=== PATIENT | male | born 1970 | race Caucasian/White ===

== ENCOUNTER 2018-08-17 22:19 | Inpatient (IN) ==
[2018-08-17] MEDS ORDERED: *HR* FentaNYL (PF) 100 MCG/2 ML VIAL IVP ONE (22:47)
[2018-08-17] MEDS ORDERED: 0.9 % Sodium Chloride 1,000 ML IVC STA (22:47)
[2018-08-17] MEDS ORDERED: Aspirin 81 MG TAB.CHEW PO STA (22:47)
[2018-08-17] MEDS ORDERED: Isovue-370 500 ML BOTTLE IVP ONE (22:50)
--- NOTE | 2018-08-17 22:58 | Emergency Department Note ---
Disposition Clinical Impression: Multifocal pneumonia, Hypoxia, Hypokalemia Disposition: Admitted As Inpatient Condition: Good Time of Disposition: 02:00 General Adult HPI - General Chief complaint: ED Abdominal Pain Stated complaint: N/V Time Seen by Provider: 08/17/18 22:37 Source: patient Limitations: no limitations Nursing Notes Reviewed: Yes Vital Signs Reviewed: Yes - History of Present Illness HPI Narrative: 48-year-old male with history of bladder cancer who presents emergency Department with complaints of chest and abdominal pain for the last 5 days. Patient states he has been unable to keep anything in terms of food or fluid down in that time. He states he has had pain in his chest like this before which he attributed to anxiety. He states that one plan he had streaks of blood after a long bout of vomiting but otherwise no hematemesis, melena. He has had no diarrhea. He states he feels short of breath and has chronic back pain but this is unchanged. He notes that he follows with a urologist and had a cancerous tumor removed but is not currently undergoing any other treatment for his bladder cancer. He denies any fever, weight loss, headache, visual changes, numbness, tingling or weakness. Pain Scale: 10 - Related Data Allergies Allergy/AdvReac Type Severity Reaction Status Date / Time No Known Allergies Allergy Verified 08/17/18 22:34 Review of Systems: ROS per history of present illness, all other systems reviewed and negative or normal. All systems ED: reviewed and negative except as stated. Review of Systems: As Per HPI Past Medical History - Past Medical History Medical history: Reports: other - Social History Smoking Status: Never smoker Alcohol use: Reports: none Drug use: Reports: marijuana Physical Exam General: Conversant. Appears uncomfortable. Follow commands. Appears stated age. Neck: No JVD. Trachea midline. Neck supple. Eyes: PERRL. No scleral icterus. HENT: Normocephalic and atraumatic. Moist mucus membranes. Cardiovascular: Regular rate and rhythm. Normal S1 and S2. No murmurs appreciated. Normal capillary refill. Extremities well perfused with 2+ distal pulses bilaterally. No edema. Pulmonary: Decreased breath sounds bilaterally, anteriorly and posteriorly. No wheezes, rales, or rhonchi. Not in respiratory distress. Speaks in full sentences but is now requiring 2 L nasal cannula. Abdomen: Soft, nondistended. Diffuse mild tenderness, worse in the epigastric area. Neuro: Alert and oriented x3. No slurred speech. No focal deficits noted. Skin: No rashes noted on visualized skin. Musculoskeletal: No bony abnormalities visualized. Moves all extremities. Psych: Normal mood. Pleasant. Makes appropriate eye contact. - General Limitations: no limitations General appearance: alert, in no apparent distress Course Vital Signs Temperature 99.4 F 08/17/18 22:31 Pulse Rate 107 08/17/18 22:31 Respiratory Rate 20 08/17/18 22:31 Blood Pressure 155/78 08/17/18 22:31 O2 Sat by Pulse Oximetry 86 08/17/18 22:31 Temperature 99.4 F 08/17/18 22:31 Pulse Rate 83 08/18/18 01:31 Respiratory Rate 20 08/18/18 01:31 Blood Pressure 127/73 08/18/18 01:31 O2 Sat by Pulse Oximetry 92 08/18/18 01:31 Oxygen Delivery Oxygen Delivery Nasal Cannula Medical Decision Making - MDM Narrative Medical decision making narrative: 48-year-old male with history of bladder cancer who presents emergency Department with complaints of chest pain, shortness of breath and nausea and vomiting over the last 5 days. On arrival the patient was hypoxic in the 80s on room air. He does not have a history of oxygen dependence. He is also tachyc ardic but not febrile. The patient had only mild abdominal tenderness without rigidity or guarding. Given the patient's symptoms did obtain CBC, BMP, blood cultures, urinalysis, CT abdomen pelvis as well as CT anterior chest to evaluate for pulmonary embolism. Chest x-ray did show multifocal pneumonia. CT anterior chest showed no evidence of pulmonary embolism but did show multifocal pneumonia with reactive lymphadenopathy. CT abdomen and pelvis showed no acute intra- abdominal process to cause his pain The patient was initiated on IV antibiotics for treatment of community-acquired pneumonia with azithromycin and Rocephin. He does have significant leukocytosis and hypokalemia which was treated with 40mEq IV potassium given he has been intermittently nauseated. Patient was given 2 L fluid bolus and has been requiring 2 L nasal cannula to maintain adequate saturation. Given his new hypoxia and several days of symptoms do believe he warrants admission. Discussed case with on-call hospitalist Dr. Singh who agrees with plan for admission and accepts the patient to the inpatient service. Patient agrees with and understands course of treatment plan including plan for admission. All questions answered. - Medical Records Medical records reviewed: Yes I reviewed the patient's medical records. - Lab Data Lab results reviewed: Yes I reviewed the patient's lab results. Result diagrams: 08/17/18 22:52 08/17/18 22:52 Lab Results 08/17/18 08/17/18 08/17/18 Range/Units 22:52 22:52 22:52 WBC 23.9 H (4.3-11.1) K/mcL RBC 5.52 H (4.19-5.50) M/mcL Hgb 15.2 (12.9-16.9) g/dL Hct 43.1 (37.5-50.1) % MCV 78.1 L (83.0-100.0) fL MCH 27.5 L (28.0-33.3) pg MCHC 35.3 (31.6-35.5) g/dL RDW 12.1 (11.5-14.5) % Plt Count 417 H (140-400) K/mcL MPV 9.9 (9.4-12.4) fL Immature Gran % 0.7 (0-4) % Seg Neutrophils % 93.3 % Lymphocytes % 4.0 % Monocytes % 1.8 % Eosinophils % 0.1 % Basophils % 0.1 % Neutrophils # 22.3 H (1.6-8.9) K/mcL Lymphocytes # 1.0 (0.6-4.6) K/mcL Monocytes # 0.4 (0.0-1.3) K/mcL Eosinophils # 0.0 (0.0-0.6) K/mcL Basophils # 0.0 (0.0-0.2) K/mcL Platelet Estimate Normal (Normal) Sodium 134 L (136-145) mEq/L Potassium 2.8 L (3.5-5.1) mEq/L Chloride 89 L (98-107) mEq/L Carbon Dioxide 26 (23-29) mEq/L BUN 12 (6-20) mg/dL Creatinine 0.78 (0.70-1.30) mg/dL Est GFR ( Amer) > 60 (> 60) Est GFR (Non-Af Amer) > 60 (> 60) BUN/Creatinine Ratio 15 (6-26) Glucose 119 H (70-105) mg/dL Calculated Osmolality 279 L (280-300) Lactic Acid 1.4 (0.5-2.2) mmol/L Calcium 9.6 (8.6-10.3) mg/dL Total Bilirubin 0.9 (0.3-1.0) mg/dL Direct Bilirubin 0.4 H (0.0-0.2) mg/dL Indirect Bilirubin 0.5 (0.0-1.2) mg/dL AST 26 (13-39) Units/L ALT 8 (7-52) Units/L Alkaline Phosphatase 66 (34-104) Units/L Troponin I 0.03 (< 0.04) ng/mL Serum Total Protein 7.9 (6.4-8.9) g/dL Albumin 4.0 (3.5-5.7) g/dL Globulin 3.9 H (2.4-3.5) g/dL Albumin/Globulin Ratio 1.0 L (1.1-2.2) Lipase 4 L (11-82) Units/L TSH 1.033 (0.340-5.600) mcIU/mL - Radiology Data Radiology results reviewed: Yes I reviewed the patient's radiology results. Chest X-Ray 08/17/18 22:46 IMPRESSION: Multifocal pneumonia particularly at the right lung base. This may represent an atypical, mycoplasma or viral pneumonia. D/ / David Barrett MD / David Barrett MD Interpreting Provider: David Barrett MD Abdomen/Pelvis CT 08/18/18 22:50 IMPRESSION: No evidence of acute intra-abdominopelvic inflammatory process or fluid collection. D/ / Jolene Tsang Cha, MD / Jolene Tsang Cha, MD Interpreting Provider: Jolene Tsang Cha, MD Chest CTA 08/18/18 22:50 IMPRESSION: No evidence of pulmonary embolism. Multifocal bilateral airspace disease with ground-glass opacity. Findings likely represent pneumonia. Pulmonary hemorrhage or edema are also possible. Mild mediastinal adenopathy is likely reactive. D/ / Jolene Tsang Cha, MD / Jolene Tsang Cha, MD Interpreting Provider: Jolene Tsang Cha, MD - EKG Data EKG #1 EKG attestation: Yes I reviewed and interpreted this EKG. EKG results narrative: Normal sinus rhythm rate of 97. Normal axis. There are no ischemic ST or T wave abnormalities. No change when compared with prior from 09/12/10
[2018-08-17 23:07] LABS: Basophils % 0.1 %; Eosinophils % 0.1 %; Hematocrit 43.1 % (37.5-50.1); Hemoglobin 15.2 g/dL (12.9-16.9); Immature Granulocytes % 0.7 % (0-4); Mean Corpuscular HGB Conc 35.3 g/dL (31.6-35.5); Mean Corpuscular Hemoglobin 27.5 pg (28.0-33.3); Mean Corpuscular Volume 78.1 fL (83.0-100.0); Mean Platelet Volume 9.9 fL (9.4-12.4); Monocytes # 0.4 K/mcL (0.0-1.3); Monocytes % 1.8 %; Neutrophils # 22.3 K/mcL (1.6-8.9); Platelet Count 417 K/mcL (140-400); Red Blood Count 5.52 M/mcL (4.19-5.50); Red Cell Distribution Width 12.1 % (11.5-14.5); Segmented Neutrophils % 93.3 %; White Blood Count 23.9 K/mcL (4.3-11.1)
[2018-08-17] MEDS: Ondansetron 4 MG/2 ML VIAL IVP STA (23:18)
[2018-08-17 23:25] LABS: Platelet Estimate Normal (Normal)
[2018-08-17 23:45] LABS: Alanine Aminotransferase 8 Units/L (7-52); Alkaline Phosphatase 66 Units/L (34-104); Aspartate Amino Transferase 26 Units/L (13-39); BUN/Creatinine Ratio 15 (6-26); Bilirubin,Direct 0.4 mg/dL (0.0-0.2); Bilirubin,Indirect 0.5 mg/dL (0.0-1.2); Bilirubin,Total 0.9 mg/dL (0.3-1.0); Blood Urea Nitrogen 12 mg/dL (6-20); Calcium 9.6 mg/dL (8.6-10.3); Carbon Dioxide 26 mEq/L (23-29); Chloride 89 mEq/L (98-107); Globulin 3.9 g/dL (2.4-3.5); Glucose 119 mg/dL (70-105); Lipase 4 Units/L (11-82); Osmolality,Calculated 279 (280-300); Potassium 2.8 mEq/L (3.5-5.1); Sodium 134 mEq/L (136-145); Thyroid Stimulating Hormone 1.033 mcIU/mL (0.340-5.600); Total Protein 7.9 g/dL (6.4-8.9); Troponin I 0.03 ng/mL (< 0.04); eGFR For African Americans > 60 (> 60); eGFR For Non-African Americans > 60 (> 60)
--- NOTE | 2018-08-17 23:46 | Emergency Department Note ---
Disposition Clinical Impression: Multifocal pneumonia, Hypoxia, Hypokalemia Disposition: Admitted As Inpatient Condition: Good Time of Disposition: 02:00 General Adult HPI - General Chief complaint: ED Abdominal Pain Stated complaint: N/V Time Seen by Provider: 08/17/18 22:37 Source: patient Limitations: no limitations Nursing Notes Reviewed: Yes Vital Signs Reviewed: Yes - History of Present Illness Pain Scale: 10 - Related Data Allergies Allergy/AdvReac Type Severity Reaction Status Date / Time No Known Allergies Allergy Verified 08/17/18 22:34 Past Medical History - Past Medical History Medical history: Reports: other - Social History Smoking Status: Never smoker Alcohol use: Reports: none Drug use: Reports: marijuana Physical Exam - General Limitations: no limitations General appearance: alert, in no apparent distress Course Vital Signs Temperature 99.4 F 08/17/18 22:31 Pulse Rate 107 08/17/18 22:31 Respiratory Rate 20 08/17/18 22:31 Blood Pressure 155/78 08/17/18 22:31 O2 Sat by Pulse Oximetry 86 08/17/18 22:31 Temperature 99.4 F 08/17/18 22:31 Pulse Rate 83 08/18/18 01:31 Respiratory Rate 20 08/18/18 01:31 Blood Pressure 127/73 08/18/18 01:31 O2 Sat by Pulse Oximetry 92 08/18/18 01:31 Oxygen Delivery Oxygen Delivery Nasal Cannula Medical Decision Making - Medical Records Medical records reviewed: Yes I reviewed the patient's medical records. - Lab Data Lab results reviewed: Yes I reviewed the patient's lab results. Result diagrams: 08/17/18 22:52 08/17/18 22:52 Lab Results 08/17/18 08/17/18 08/17/18 Range/Units 22:52 22:52 22:52 WBC 23.9 H (4.3-11.1) K/mcL RBC 5.52 H (4.19-5.50) M/mcL Hgb 15.2 (12.9-16.9) g/dL Hct 43.1 (37.5-50.1) % MCV 78.1 L (83.0-100.0) fL MCH 27.5 L (28.0-33.3) pg MCHC 35.3 (31.6-35.5) g/dL RDW 12.1 (11.5-14.5) % Plt Count 417 H (140-400) K/mcL MPV 9.9 (9.4-12.4) fL Immature Gran % 0.7 (0-4) % Seg Neutrophils % 93.3 % Lymphocytes % 4.0 % Monocytes % 1.8 % Eosinophils % 0.1 % Basophils % 0.1 % Neutrophils # 22.3 H (1.6-8.9) K/mcL Lymphocytes # 1.0 (0.6-4.6) K/mcL Monocytes # 0.4 (0.0-1.3) K/mcL Eosinophils # 0.0 (0.0-0.6) K/mcL Basophils # 0.0 (0.0-0.2) K/mcL Platelet Estimate Normal (Normal) Sodium 134 L (136-145) mEq/L Potassium 2.8 L (3.5-5.1) mEq/L Chloride 89 L (98-107) mEq/L Carbon Dioxide 26 (23-29) mEq/L BUN 12 (6-20) mg/dL Creatinine 0.78 (0.70-1.30) mg/dL Est GFR ( Amer) > 60 (> 60) Est GFR (Non-Af Amer) > 60 (> 60) BUN/Creatinine Ratio 15 (6-26) Glucose 119 H (70-105) mg/dL Calculated Osmolality 279 L (280-300) Lactic Acid 1.4 (0.5-2.2) mmol/L Calcium 9.6 (8.6-10.3) mg/dL Total Bilirubin 0.9 (0.3-1.0) mg/dL Direct Bilirubin 0.4 H (0.0-0.2) mg/dL Indirect Bilirubin 0.5 (0.0-1.2) mg/dL AST 26 (13-39) Units/L ALT 8 (7-52) Units/L Alkaline Phosphatase 66 (34-104) Units/L Troponin I 0.03 (< 0.04) ng/mL Serum Total Protein 7.9 (6.4-8.9) g/dL Albumin 4.0 (3.5-5.7) g/dL Globulin 3.9 H (2.4-3.5) g/dL Albumin/Globulin Ratio 1.0 L (1.1-2.2) Lipase 4 L (11-82) Units/L TSH 1.033 (0.340-5.600) mcIU/mL - Radiology Data Radiology results reviewed: Yes I reviewed the patient's radiology results. Chest X-Ray 08/17/18 22:46 IMPRESSION: Multifocal pneumonia particularly at the right lung base. This may represent an atypical, mycoplasma or viral pneumonia. D/ / David Barrett MD / David Barrett MD Interpreting Provider: David Barrett MD Abdomen/Pelvis CT 08/18/18 22:50 IMPRESSION: No evidence of acute intra-abdominopelvic inflammatory process or fluid collection. D/ / Jolene Tsang Cha, MD / Jolene Tsang Cha, MD Interpreting Provider: Jolene Tsang Cha, MD Chest CTA 08/18/18 22:50 IMPRESSION: No evidence of pulmonary embolism. Multifocal bilateral airspace disease with ground-glass opacity. Findings likely represent pneumonia. Pulmonary hemorrhage or edema are also possible. Mild mediastinal adenopathy is likely reactive. D/ / Jolene Tsang Cha, MD / Jolene Tsang Cha, MD Interpreting Provider: Jolene Tsang Cha, MD - EKG Data EKG #1 EKG attestation: Yes I reviewed and interpreted this EKG. EKG results narrative: EKG shows a normal sinus rhythm with ventricular rate of 97. No significant ST segment elevation or depression. No arrhythmia or ectopy. No significant change from prior EKG dated 09/12/2010. Critical Care Time Critical Care Time: Yes Total Critical Care Time: 40 Attestation: Critical care performed: Time is exclusive of separately billable procedures. Time includes: direct patient care, patient reassessment, coordination of patient care, interpretation of data (laboratory data, radiology data, and respiratory data), review of patient's medical records, medical consultation and documentation of patient care. Procedures included in critical care time: Procedures excluded from critical care time: Attestation Statement - Attestation Attestation: I, Landen Dowling MD, personally evaluated this patient and discussed their management with the resident physician. I reviewed the resident's note and agree with the documented findings, medical decision making, and plan of care. I reviewed the residents documentation and agree with the residents assessment and plan of care. I have personally had face to face time with the patient. I personally supervised and was present for the cavazos/critical portions of the following procedures completed by the resident: EKG interpretation 48-year-old male presents to the emergency department with a complaint of severe mid and epigastric abdominal pain and mid chest pain for the past 5 days prior to arrival. There has been multiple episodes of nausea and vomiting from the pain. Some loose stool. No melena or hematochezia. He states a few days ago he did vomit very hard and had a few small streaks of bright red blood in the emesis but none since. He has had a slight nonproductive cough. He does complain of shortness of breath. He complains of back pain which is chronic and does not seem worse. No history of heart disease. Subjective fever. No dysuria or gross hematuria. He does have a history of bladder cancer which was resected. He states he has a history of similar episodes of pain in the past which were felt to be due to anxiety. However they were not as severe as this episode and did not last for 5 days. He denies a history of COPD or breathing problems. He denies smoking. He denies alcohol use. He is on medication for hypertension. He denies drug use other than occasional marijuana. On examination patient is a well-developed well-nourished male in mild distress. He is alert and oriented 3. There is no cyanosis or diaphoresis. He is mildly pale. He is tachypneic and pulse oximetry is in the upper 80s and low 90s on room air. Chest is nontender to palpation. Breath sounds are decreased but equal bilaterally with no significant rales or wheezes noted. Heart is regular with a slight tachycardia. Abdomen is soft with moderate mid and epigastric tenderness on direct palpation. Normal bowel sounds. No guarding or rebound tenderness. No pedal edema. No gross focal neurological deficits. EKG shows a normal sinus rhythm with ventricular rate of 97. No significant ST segment elevation or depression. No arrhythmia or ectopy. No significant change from prior EKG dated 09/12/2010. Labs reviewed. Leukocytosis and hypokalemia. Lactic acid normal. Chest x-ray and CTA of the chest shows m ultifocal bilateral pneumonia. No evidence of pulmonary embolism. CT of the abdomen and pelvis was negative. Blood cultures obtained and IV antibiotics initiated. The hospitalist, Dr. Singh, was consulted and accepted admission of the patient.
[2018-08-18] MEDS ORDERED: cefTRIAXone 1,000 MG in Water for inj. (sterile) 20 ML 10 ML IVP ONE (00:13)
[2018-08-18] MEDS ORDERED: Azithromycin 500 MG in D5% in Water 250 ML IVPB ONE (00:13)
[2018-08-18] MEDS ORDERED: 0.9 % Sodium Chloride 1,000 ML IVC STA (00:36)
[2018-08-18] MEDS ORDERED: Ondansetron 4 MG/2 ML VIAL IVP STA (01:37)
--- NOTE | 2018-08-18 04:14 | Internal Med History&Physical ---
Date of Encounter: 08/18/18 Time of Encounter: 04:13 Internal Medicine - H&P: HPI Chief complaint: Shortness of breath/abdominal pain History of present illness: Mr. Greene is a 48 year old male with a past medical history of bladder cancer status post tumor resection and anxiety who presented to the ED with complaints of abdominal pain and shortness of breath. Patient reports nausea, vomiting and diarrhea for the past 5 days. He states he has had difficulty keeping any food down since then. Patient reports symptoms started shortly after having eaten a pizza at a restaurant. However, he reports that no one else got sick who ate the same food as he did. He does report epigastric pain which he describes as burning. Emesis up until today had been nonbloody and nonbilious, however, he did note a small amount of blood during the last time he vomited. He states it is less than 1 teaspoon. Patient's stools have been loose. He denies any hematochezia but does note that stool appeared dark in color. Patient also reporting tightness in his chest that is been intermittent, nonradiating and worse when he is stressed. Patient is a nonsmoker. Denies any family history of heart disease. EKG showed normal sinus rhythm with no evidence of ischemic changes. Initial troponin was negative. Patient also complaining of increased shortness of breath and productive cough. CTA performed on arrival was negative for PE but did demonstrate bilateral airspace disease concerning for pneumonia. With further workup notable for a leukocytosis of 23.9. Patient was also hypokalemic with a potassium of 2.8. Lactic acid within normal limits. Patient was given 2 L of fluid boluses in the ED. He was started on ceftriaxone and azithromycin for possible CAP. Loading dose of aspirin was given as well. Past Med Surg Social Fam HX - Past Medical History Medical history: hypertension, other Additional medical history: bladder cancer, Neuropathy Psychiatric history: anxiety, depression - Past Surgical History Additional surgical history: bladder surgery - Social History Smoking Status: Never smoker Smokeless Tobacco Status: No Alcohol use: none Drug use: marijuana - Family History Mother Living Status: Cause of : during choleycystectomy? Hx Family GI Disorders: Yes (ulcers) Father History Unknown: Yes Living Status: Still Living Internal Medicine - H&P: Meds Losartan Potassium 08/18/18 [History] Mirtazapine [Remeron] 30 mg PO HS 08/18/18 [History] Pregabalin [Lyrica] 200 mg PO TID 08/18/18 [History] Tizanidine HCl [Zanaflex] 4 mg PO TID PRN 08/18/18 [History] hydroCHLOROthiazide [Hydrochlorothiazide] 25 mg PO DAILY 08/18/18 [History] Allergy/AdvReac Type Severity Reaction Status Date / Time No Known Allergies Allergy Verified 08/17/18 22:34 All Systems PM: A 10-system review of systems was performed and is negative for pertinent findings except as documented above in the HPI. - Constitutional Constitutional: no chills, no fever(s), no night sweats - EENT Eyes: no change in vision, no discharge, no pain, no photophobia Ears: no ear discharge, no ear pain, no tinnitus Nose, mouth and throat: no dysphagia, no nasal discharge, no neck pain, no sore throat - Cardiovascular Cardiovascular ROS IM: no chest pain, no diaphoresis, no dyspnea, no lightheadedness, no palpitations, no syncope - Respiratory Respiratory: no cough, no dyspnea, no wheezing, no excessive phlegm production - Gastrointestinal Gastrointestinal: no abdominal pain, no diarrhea, no hematemesis, no hematochezia, no melena, no nausea, no vomiting - Musculoskeletal Musculoskeletal ROS IM: no numbness, no tingling - Integumentary Integumentary IM: no rash, no unusual bruising - Neurological Neurological ROS: no confusion, no convulsions, no focal weakness, no numbness, no tingling, no tremor(s) - Hematologic/Lymphatic Hematologic/Lymphatic: no easy bruising - Constitutional Vitals: Temp Pulse Resp BP Pulse Ox 99.9 F H 75 16 107/72 96 08/18/18 03:06 08/18/18 03:06 08/18/18 03:06 08/18/18 03:08/18/18 03:29 Exam: General: Alert and oriented 3 lying in bed in no acute distress Skin:Normal color, no rash, no lesions. HEENT:EOM, pupils equal, round and reactive. Cardiovascular:Normal S1 & S2, no rubs, murmurs or gallops. No JVD. Pulse regular. Lungs:Normal breath sounds, no wheezes or crackles. Abdomen:Soft, with mild diffuse tenderness; no rebound or guarding Extremities:No deformity, no edema or tenderness, no joint swelling or clubbing. Neurological:Normal cognition and motor skills. Pulses:Carotid and radial pulses normal +2. Rest of the physical exam is non contributory Internal Med - H&P Results - Labs CBC & Chem 7: 08/18/18 05:13 08/18/18 05:13 Labs: Short CBC 08/17/18 Range/Units 22:52 WBC 23.9 H (4.3-11.1) K/mcL Hgb 15.2 (12.9-16.9) g/dL Hct 43.1 (37.5-50.1) % Plt Count 417 H (140-400) K/mcL Neutrophils # 22.3 H (1.6-8.9) K/mcL BMP 08/17/18 22:52 Sodium 134 L Potassium 2.8 L Chloride 89 L Carbon Dioxide 26 BUN 12 Creatinine 0.78 Glucose 119 H Calcium 9.6 Cardiac Enzymes 08/17/18 Range/Units 22:52 Troponin I 0.03 (< 0.04) ng/mL Liver Function 08/17/18 Range/Units 22:52 Total Bilirubin 0.9 (0.3-1.0) mg/dL Direct Bilirubin 0.4 H (0.0-0.2) mg/dL AST 26 (13-39) Units/L ALT 8 (7-52) Units/L Alkaline Phosphatase 66 (34-104) Units/L Albumin 4.0 (3.5-5.7) g/dL - Impressions ITS Impressions Chest X-Ray 08/17/18 22:46 IMPRESSION: Multifocal pneumonia particularly at the right lung base. This may represent an atypical, mycoplasma or viral pneumonia. D/ / David Barrett MD / David Barrett MD Interpreting Provider: David Barrett MD Abdomen/Pelvis CT 08/18/18 22:50 IMPRESSION: No evidence of acute intra-abdominopelvic inflammatory process or fluid collection. D/ / Jolene Tsang Cha, MD / Jolene Tsang Cha, MD Interpreting Provider: Jolene Tsang Cha, MD Chest CTA 08/18/18 22:50 IMPRESSION: No evidence of pulmonary embolism. Multifocal bilateral airspace disease with ground-glass opacity. Findings likely represent pneumonia. Pulmonary hemorrhage or edema are also possible. Mild mediastinal adenopathy is likely reactive. D/ / Jolene Tsang Cha, MD / Jolene Tsang Cha, MD Interpreting Provider: Jolene Tsang Cha, MD - Assessment and Plan (1) Acute and chronic respiratory failure with hypoxia Current Visit: Yes Status: Acute Assessment and plan: Acute hypoxic respiratory failure likely secondary to pneumonia. CTA showed no evidence of PE. However there was multifocal bilateral airspace disease with groundglass opacities likely representing pneumonia. Patient currently stable from a respiratory standpoint. -Continue with O2 support -We will continue antibiotic treatment for underlying pneumonia (2) Hypokalemia Current Visit: Yes Status: Acute Assessment and plan: Patient presenting with a potassium of 2.8. Likely secondary to GI losses. No evidence of EKG changes. Continue to replete. We will monitor in the morning. (3) Multifocal pneumonia Current Visit: Yes Status: Acute Assessment and plan: CTA showing multifocal bilateral infiltrates concerning for pneumonia in the setting of hypoxia and leukocytosis. -Continue O2 support -Continue with antibiotics: Ceftriaxone/azithromycin -Follow up blood and sputum cultures -Follow-up urine antigens (4) Nausea vomiting and diarrhea Current Visit: Yes Status: Acute Assessment and plan: Patient presenting with 5 day history of nausea, vomiting and diarrhea. CT scan of the abdomen shows no acute changes. Suspect likely secondary to viral gastroenteritis. -We will continue fluid support; anti-emetics. (5) Hematemesis Current Visit: Yes Status: Acute Assessment and plan: Patient reporting one episode of hematemesis earlier today in the setting of recurrent nausea, vomiting and burning epigastric pain. Reports some streaks red blood less than 1 teaspoon. Hemoglobin stable. Possible gastritis versus Celina-Nolasco tear. Low suspicion for significant upper GI bleed at this time. We will start patient on IV PPI. We will guaiac stool. Consider GI consult if further evidence of bleed. Qualifiers: Nausea presence: with nausea Qualified Code(s): K92.0 - Hematemesis (6) Chest pain Current Visit: Yes Status: Acute Assessment and plan: Patient reporting chest tightness that is intermittent, nonradiating exacerbated with stress. No significant risk factors for coronary artery disease. Initial troponin negative. EKG shows normal sinus rhythm without any evidence of ischemic changes. -We will continue patient on telemetry -Repeat troponin -We will obtain an echocardiogram -Consider further workup with stress testing once current symptoms and presentation improved Qualifiers: Ischemic chest pain type: other angina pectoris type Qualified Code(s): I20.8 - Other forms of angina pectoris (7) Sepsis Current Visit: Yes Status: Acute Assessment and plan: Patient meets sepsis criteria. Initial lactic acid within normal limits. Patient received 2 L of fluid boluses in the ED. -Continue fluids -Continue with antibiotics -Follow up cultures Qualifiers: Sepsis type: sepsis due to unspecified organism Qualified Code(s): A41.9 - Sepsis, unspecified organism (8) DVT prophylaxis Current Visit: Yes Status: Acute Assessment and plan: Subcutaneous heparin - Time Spent With Patient Total time spent is greater than 50% in coordination of care (as documented) at patient's floor/unit and/or counseling patient:
[2018-08-18] MEDS ORDERED: Naloxone 0.4 MG/ML INJ IVP PRN (04:16)
[2018-08-18] MEDS ORDERED: tiZANidine 4 MG TABLET PO PRN (04:21)
[2018-08-18 05:46] LABS: Basophils % 0.2 %; Eosinophils % 0.1 %; Hematocrit 37.8 % (37.5-50.1); Immature Granulocytes % 0.4 % (0-4); Lymphocytes # 1.5 K/mcL (0.6-4.6); Lymphocytes % 9.1 %; Mean Corpuscular HGB Conc 34.9 g/dL (31.6-35.5); Mean Corpuscular Hemoglobin 27.7 pg (28.0-33.3); Mean Corpuscular Volume 79.4 fL (83.0-100.0); Mean Platelet Volume 9.8 fL (9.4-12.4); Monocytes # 0.3 K/mcL (0.0-1.3); Monocytes % 1.9 %; Neutrophils # 14.6 K/mcL (1.6-8.9); Platelet Count 357 K/mcL (140-400); Red Blood Count 4.76 M/mcL (4.19-5.50); Red Cell Distribution Width 12.1 % (11.5-14.5); Segmented Neutrophils % 88.3 %; White Blood Count 16.5 K/mcL (4.3-11.1)
[2018-08-18 05:48] LABS: Hemoglobin 13.2 g/dL (12.9-16.9)
[2018-08-18] MEDS ORDERED: 0.9 % Sodium Chloride 1,000 ML ONE (05:49)
[2018-08-18] MEDS: 0.9 % Sodium Chloride 1,000 ML IVC SCH ×2 (06:00→17:28)
[2018-08-18 06:05] LABS: Alanine Aminotransferase 6 Units/L (7-52); Albumin 3.3 g/dL (3.5-5.7); Alkaline Phosphatase 56 Units/L (34-104); Aspartate Amino Transferase 21 Units/L (13-39); BUN/Creatinine Ratio 13 (6-26); Bilirubin,Total 0.6 mg/dL (0.3-1.0); Blood Urea Nitrogen 8 mg/dL (6-20); Calcium 8.5 mg/dL (8.6-10.3); Carbon Dioxide 27 mEq/L (23-29); Chloride 93 mEq/L (98-107); Globulin 3.3 g/dL (2.4-3.5); Glucose 101 mg/dL (70-105); Osmolality,Calculated 276 (280-300); Potassium 2.7 mEq/L (3.5-5.1); Sodium 134 mEq/L (136-145); Total Protein 6.6 g/dL (6.4-8.9); eGFR For African Americans > 60 (> 60); eGFR For Non-African Americans > 60 (> 60)
[2018-08-18] MEDS ORDERED: *HR* Heparin 5,000 UNIT/ML VIAL SQ SCH (06:15)
[2018-08-18 06:41] LABS: Troponin I 0.07 ng/mL (< 0.04)
[2018-08-18] MEDS: cefTRIAXone 1,000 MG in Water for inj. (sterile) 20 ML 10 ML IVP SCH (07:55)
[2018-08-18] MEDS: Pantoprazole 40 MG VIAL IVP SCH (07:56)
[2018-08-18] MEDS: Pregabalin 50 MG CAPSULE PO SCH ×3 (07:56→21:18)
--- NOTE | 2018-08-18 10:36 | Event Note ---
Date of Encounter: 08/18/18 Time of Encounter: 10:36 Patient was seen earlier this morning by hospitalist services currently denies any chest pain -states service of breath is improving requiring oxygen supplementation normally does not wear oxygen at home. Does not appear to be any respiratory distress. Nausea and vomiting has been controlled. We will monitor and replace potassium and other electrolytes discussed reimplant the patient verbalized understanding
[2018-08-18] MEDS ORDERED: Acetaminophen 325 MG TABLET PO ONE (12:54)
--- NOTE | 2018-08-18 13:56 | Electrocardiograph Report ---
[place] [id number] Test Date: 2018-08-17 Pat Name: Waldo Greene Department: [id number] Room: 3B34 Gender: M Supervisor Doping: : 1970 Requested By: Blanca Sharpe Order Number: [id number] Reading MD: Cindy Camilo Measurements Intervals [place] Rate: 97 P: 73 PA: 130 QRS: 74 QRSD: 145 T: 23 QT: 431 QTc: 548 Interpretive Statements Sinus rhythm Nonspecific ST abnormalities Electronically Signed On 08-18-2018 13:55:12 EDT by Cindy Camilo
[2018-08-18] MEDS: Ondansetron 4 MG/2 ML VIAL IVP PRN ×2 (14:47→21:21)
[2018-08-18] MEDS: Azithromycin 500 MG in D5% in Water 250 ML IVPB SCH (17:28)
[2018-08-18] MEDS: Mirtazapine 15 MG TABLET PO SCH (21:19)
[2018-08-18] MEDS ORDERED: Potassium Chloride 40 MEQ, Lidocaine 1% 2 ML in D5% in Water 500 ML IVPB ONE (23:45)
--- NOTE | 2018-08-19 05:53 | Event Note ---
Date of Encounter: 08/18/18 Time of Encounter: 22:13 Alerted by patient's nurse Cooper the patient had been admitted for pneumonia and hypokalemia. Last potassium level was 2.9 and received 30 mEq of potassium chloride early in the morning and 10 mEq close to time lab was drawn. Repeat K was 2.9. 40 mEq K rider ordered with repeat potassium ordered for 06:00. Nurse instructed to continue monitoring patient very closely alerted me immediately of any changes. Patient is on cardiac monitoring.
[2018-08-19 07:39] LABS: Basophils % 0.1 %; Eosinophils % 0.1 %; Hematocrit 36.4 % (37.5-50.1); Hemoglobin 12.6 g/dL (12.9-16.9); Immature Granulocytes % 0.6 % (0-4); Lymphocytes # 1.1 K/mcL (0.6-4.6); Lymphocytes % 7.6 %; Mean Corpuscular HGB Conc 34.6 g/dL (31.6-35.5); Mean Corpuscular Hemoglobin 27.5 pg (28.0-33.3); Mean Corpuscular Volume 79.5 fL (83.0-100.0); Mean Platelet Volume 9.8 fL (9.4-12.4); Monocytes # 0.3 K/mcL (0.0-1.3); Monocytes % 2.3 %; Neutrophils # 12.3 K/mcL (1.6-8.9); Platelet Count 410 K/mcL (140-400); Red Blood Count 4.58 M/mcL (4.19-5.50); Red Cell Distribution Width 12.5 % (11.5-14.5); Segmented Neutrophils % 89.3 %; White Blood Count 13.8 K/mcL (4.3-11.1)
[2018-08-19 07:49] LABS: BUN/Creatinine Ratio 10 (6-26); Blood Urea Nitrogen 6 mg/dL (6-20); Calcium 8.8 mg/dL (8.6-10.3); Carbon Dioxide 27 mEq/L (23-29); Chloride 95 mEq/L (98-107); Glucose 146 mg/dL (70-105); Osmolality,Calculated 278 (280-300); Sodium 134 mEq/L (136-145); eGFR For African Americans > 60 (> 60); eGFR For Non-African Americans > 60 (> 60)
[2018-08-19] MEDS ORDERED: Potassium Chloride 40 MEQ, Lidocaine 1% 2 ML in D5% in Water 500 ML IVPB ONE (07:51)
[2018-08-19 08:11] LABS: Magnesium 1.9 mg/dL (1.6-2.6)
[2018-08-19] MEDS: cefTRIAXone 1,000 MG in Water for inj. (sterile) 20 ML 10 ML IVP SCH (08:29)
[2018-08-19] MEDS: Pregabalin 50 MG CAPSULE PO SCH ×3 (08:29→21:37)
[2018-08-19] MEDS: Pantoprazole 40 MG VIAL IVP SCH (08:29)
[2018-08-19] MEDS: Ondansetron 4 MG/2 ML VIAL IVP PRN ×2 (08:30→17:54)
[2018-08-19] MEDS: 0.9 % Sodium Chloride 1,000 ML IVC SCH ×3 (10:34→21:42)
--- NOTE | 2018-08-19 11:18 | Internal Med Progress Note ---
Hospitalist Progress Note - Encounter Date of Encounter: 08/19/18 Time of Encounter: 11:18 - Subjective Interval History: Patient was seen and examined at bedside currently states he feels somewhat better but is rather weak. Discussed treatment plan with the patient who verbalized understanding - Exam Vitals: Temp Pulse Resp BP Pulse Ox 99.4 F 84 15 107/62 94 08/19/18 11:05 08/19/18 11:05 08/19/18 11:05 08/19/18 11:05 08/19/18 11:05 Exam: General: Alert and oriented 3 lying in bed in no acute distress Skin:Normal color, no rash, no lesions. HEENT:EOM, pupils equal, round and reactive. Cardiovascular:Normal S1 & S2, no rubs, murmurs or gallops. No JVD. Pulse regular. Lungs: breath sounds diminished, no wheezes or crackles. Abdomen:Soft, with mild diffuse tenderness; no rebound or guarding Extremities:No deformity, no edema or tenderness, no joint swelling or clubbing. Neurological:Normal cognition and motor skills. Pulses:Carotid and radial pulses normal +2. Rest of the physical exam is non contributory - Assessment and Plan (1) Multifocal pneumonia Current Visit: Yes Status: Acute Assessment and Plan: CTA showing multifocal bilateral infiltrates concerning for pneumonia in the setting of hypoxia and leukocytosis. -Continue O2 support -Continue with antibiotics: Ceftriaxone/azithromycin -Follow up blood and sputum cultures-pending - urine antigens are negative (2) Hypokalemia Current Visit: Yes Status: Acute Assessment and Plan: Potassium 3. Likely secondary to GI losses. No evidence of EKG changes. Continue to replete. We will monitor in the morning. (3) Acute and chronic respiratory failure with hypoxia Current Visit: Yes Status: Acute Assessment and Plan: Acute hypoxic respiratory failure likely secondary to pneumonia. CTA showed no evidence of PE. However there was multifocal bilateral airspace disease with groundglass opacities likely representing pneumonia. Patient currently stable from a respiratory standpoint. -Continue with O2 support -We will continue antibiotic treatment for underlying pneumonia (4) DVT prophylaxis Current Visit: Yes Status: Acute Assessment and Plan: Subcutaneous heparin (5) Nausea vomiting and diarrhea Current Visit: Yes Status: Acute Assessment and Plan: Patient presenting with 5 day history of nausea, vomiting and diarrhea. CT scan of the abdomen shows no acute changes. Suspect likely secondary to viral gastroenteritis. -We will continue fluid support; anti-emetics. (6) Hematemesis Current Visit: Yes Status: Acute Assessment and Plan: Patient reporting one episode of hematemesis earlier today in the setting of recurrent nausea, vomiting and burning epigastric pain. Reports some streaks red blood less than 1 teaspoon. Hemoglobin stable. Possible gastritis versus Celina-Nolasco tear. Low suspicion for significant upper GI bleed at this time. We will start patient on IV PPI. We will guaiac stool. Consider GI consult if further evidence of bleed. 08/19 No bleeding noted hemoglobin stable continue as above (7) Chest pain Current Visit: Yes Status: Acute Assessment and Plan: Patient reporting chest tightness that is intermittent, nonradiating exacerbated with stress. No significant risk factors for coronary artery disease. Initial troponin negative. EKG shows normal sinus rhythm without any evidence of ischemic changes. -We will continue patient on telemetry -troponin negative -We will obtain an echocardiogram -Consider further workup with stress testing once current symptoms and presentation improved (8) Sepsis Current Visit: Yes Status: Acute Assessment and Plan: Patient meets sepsis criteria. Initial lactic acid within normal limits. Patient received 2 L of fluid boluses in the ED. -Continue fluids -Continue with antibiotics -Follow up cultures - Time Spent with Patient Total time spent is greater than 50% in coordination of care (as documented) at patient's floor/unit and/or counseling patient: Internal Medicine: Result - Labs CBC & Chem 7: 08/19/18 06:55 08/19/18 06:55 Labs: Short CBC 08/19/18 Range/Units 06:55 WBC 13.8 H (4.3-11.1) K/mcL Hgb 12.6 L (12.9-16.9) g/dL Hct 36.4 L (37.5-50.1) % Plt Count 410 H (140-400) K/mcL Neutrophils # 12.3 H (1.6-8.9) K/mcL BMP 08/18/18 08/18/18 08/19/18 20:16 22:35 06:55 Sodium 134 L Potassium 2.9 L 2.9 L 3.0 L Chloride 95 L Carbon Dioxide 27 BUN 6 Creatinine 0.63 L Glucose 146 H Calcium 8.8 08/19/18 06:55 Sodium Potassium 3.0 L Chloride Carbon Dioxide BUN Creatinine Glucose Calcium Cardiac Enzymes 08/18/18 Range/Units 11:38 Troponin I < 0.03 (< 0.04) ng/mL Consult Discharge Plan - Plan Referrals: NONE,PCP [Primary Care Provider] - Jolene Tanner, CUSTOMER RETENTION REPRESENTATIVE [Advanced Practice Nurse] - (6) Hematemesis Qualifiers: Nausea presence: with nausea Qualified Code(s): K92.0 - Hematemesis (7) Chest pain Qualifiers: Ischemic chest pain type: other angina pectoris type (8) Sepsis Qualifiers: Sepsis type: sepsis due to unspecified organism Qualified Code(s): A41.9 - Sepsis, unspecified organism
[2018-08-19] MEDS: Azithromycin 500 MG in D5% in Water 250 ML IVPB SCH (17:54)
[2018-08-19] MEDS ORDERED: Naloxone 0.4 MG/ML INJ IVP PRN (17:58)
[2018-08-19] MEDS: *HR* HYDROcodone/Acet 5/325 mg TABLET PO PRN (20:13)
[2018-08-19] MEDS: Mirtazapine 15 MG TABLET PO SCH (21:37)
[2018-08-20] MEDS: Ondansetron 4 MG/2 ML VIAL IVP PRN ×3 (01:09→17:41)
[2018-08-20 01:50] LABS: Basophils % 0.1 %; Eosinophils # 0.1 K/mcL (0.0-0.6); Eosinophils % 0.8 %; Hematocrit 37.1 % (37.5-50.1); Hemoglobin 12.8 g/dL (12.9-16.9); Immature Granulocytes % 0.6 % (0-4); Lymphocytes # 1.6 K/mcL (0.6-4.6); Lymphocytes % 10.8 %; Mean Corpuscular HGB Conc 34.5 g/dL (31.6-35.5); Mean Corpuscular Hemoglobin 27.4 pg (28.0-33.3); Mean Corpuscular Volume 79.4 fL (83.0-100.0); Mean Platelet Volume 9.7 fL (9.4-12.4); Monocytes # 0.4 K/mcL (0.0-1.3); Monocytes % 2.9 %; Neutrophils # 12.4 K/mcL (1.6-8.9); Platelet Count 432 K/mcL (140-400); Red Blood Count 4.67 M/mcL (4.19-5.50); Red Cell Distribution Width 12.9 % (11.5-14.5); Segmented Neutrophils % 84.8 %; White Blood Count 14.6 K/mcL (4.3-11.1)
[2018-08-20 02:09] LABS: BUN/Creatinine Ratio 8 (6-26); Blood Urea Nitrogen 5 mg/dL (6-20); Calcium 8.6 mg/dL (8.6-10.3); Carbon Dioxide 24 mEq/L (23-29); Chloride 99 mEq/L (98-107); Glucose 103 mg/dL (70-105); Osmolality,Calculated 282 (280-300); Potassium 2.8 mEq/L (3.5-5.1); Sodium 137 mEq/L (136-145); eGFR For African Americans > 60 (> 60); eGFR For Non-African Americans > 60 (> 60)
[2018-08-20] MEDS: Acetaminophen 325 MG TABLET PO PRN ×2 (03:54→18:36)
[2018-08-20] MEDS: 0.9 % Sodium Chloride 1,000 ML IVC SCH ×2 (08:46→23:16)
[2018-08-20] MEDS: Pantoprazole 40 MG VIAL IVP SCH (08:46)
[2018-08-20] MEDS: cefTRIAXone 1,000 MG in Water for inj. (sterile) 20 ML 10 ML IVP SCH (08:47)
[2018-08-20] MEDS: Pregabalin 50 MG CAPSULE PO SCH ×3 (08:47→20:56)
[2018-08-20] MEDS: *HR* HYDROcodone/Acet 5/325 mg TABLET PO PRN (08:51)
[2018-08-20] MEDS ORDERED: Potassium Chloride 40 MEQ, Lidocaine 1% 2 ML in D5% in Water 500 ML IVPB ONE (09:34)
--- NOTE | 2018-08-20 09:39 | Internal Med Progress Note ---
Hospitalist Progress Note - Encounter Date of Encounter: 08/20/18 Time of Encounter: 09:39 - Subjective Interval History: Patient was seen and examined at bedside currently patient is calm and cooperative denies any pain or discomfort denies any chest pain or shortness of breath states he does feel like he is improving some. No diarrhea or abdominal pain or nausea vomiting - Exam Vitals: Temp Pulse Resp BP Pulse Ox 98.0 F 83 16 128/70 92 08/20/18 07:14 08/20/18 07:14 08/20/18 07:14 08/20/18 07:14 08/20/18 07:14 Exam: General: Alert and oriented 3 lying in bed in no acute distress Skin:Normal color, no rash, no lesions. HEENT:EOM, pupils equal, round and reactive. Cardiovascular:Normal S1 & S2, no rubs, murmurs or gallops. No JVD. Pulse regular. Lungs: breath sounds diminished, no wheezes or crackles. Abdomen:Soft, with mild diffuse tenderness; no rebound or guarding Extremities:No deformity, no edema or tenderness, no joint swelling or clubbing. Neurological:Normal cognition and motor skills. Pulses:Carotid and radial pulses normal +2. Rest of the physical exam is non contributory - Assessment and Plan (1) Multifocal pneumonia Current Visit: Yes Status: Acute Assessment and Plan: CTA showing multifocal bilateral infiltrates concerning for pneumonia in the setting of hypoxia and leukocytosis. -Continue O2 support as needed currently on 4 L nasal cannula -Continue with antibiotics: Ceftriaxone/azithromycin -Follow up blood and sputum cultures-negative so far - urine antigens are negative (2) Hypokalemia Current Visit: Yes Status: Acute Assessment and Plan: Potassium 3. Likely secondary to GI losses. No evidence of EKG changes. Continue to replete. We will monitor in the morning. We will place on oral supplements no vomiting or diarrhea just nausea We will check GI panel (3) Acute and chronic respiratory failure with hypoxia Current Visit: Yes Status: Acute Assessment and Plan: Acute hypoxic respiratory failure likely secondary to pneumonia. CTA showed no evidence of PE. However there was multifocal bilateral airspace disease with groundglass opacities likely representing pneumonia. Patient currently stable from a respiratory standpoint. -Continue with O2 support-early on 4 L nasal cannula -We will continue antibiotic treatment for underlying pneumonia (4) DVT prophylaxis Current Visit: Yes Status: Acute Assessment and Plan: Subcutaneous heparin (5) Nausea vomiting and diarrhea Current Visit: Yes Status: Acute Assessment and Plan: Patient presenting with 5 day history of nausea, vomiting and diarrhea. CT scan of the abdomen shows no acute changes. Suspect likely secondary to viral gastroenteritis. -We will continue fluid support; anti-emetics. No vomiting or diarrhea today continues to be nauseated (6) Hematemesis Current Visit: Yes Status: Acute Assessment and Plan: Patient reporting one episode of hematemesis earlier today in the setting of recurrent nausea, vomiting and burning epigastric pain. Reports some streaks red blood less than 1 teaspoon. Hemoglobin stable. Possible gastritis versus Celina-Nolasco tear. Low suspicion for significant upper GI bleed at this time. We will start patient on IV PPI. We will guaiac stool. Consider GI consult if further evidence of bleed. 08/19 No bleeding noted hemoglobin stable continue as above 08/20 No more bleeding noted (7) Chest pain Current Visit: Yes Status: Acute Assessment and Plan: Patient reporting chest tightness that is intermittent, nonradiating exacerbated with stress. No significant risk factors for coronary artery disease. Initial troponin negative. EKG shows normal sinus rhythm without any evidence of ischemic changes. -We will continue patient on telemetry -troponin negative -We will obtain an echocardiogram Impressions: LVEF 65%. Normal LV chamber size, wall thickness and function. Normal left ventricular diastolic function. Normal right ventricular structure and function. No evidence of pulmonary hypertension. No significant valvular dysfunction. -Consider further workup with stress testing once current symptoms and presentation improved (8) Sepsis Current Visit: Yes Status: Acute Assessment and Plan: Patient meets sepsis criteria on presentation Initial lactic acid within normal limits. Patient received 2 L of fluid boluses in the ED. -Continue fluids due to nausea and poor oral intake -Continue with antibiotics -Follow up cultures which are negative to date - Time Spent with Patient Total time spent is greater than 50% in coordination of care (as documented) at patient's floor/unit and/or counseling patient: Internal Medicine: Result - Labs CBC & Chem 7: 08/20/18 01:19 08/20/18 01:19 Labs: Short CBC 08/20/18 Range/Units 01:19 WBC 14.6 H (4.3-11.1) K/mcL Hgb 12.8 L (12.9-16.9) g/dL Hct 37.1 L (37.5-50.1) % Plt Count 432 H (140-400) K/mcL Neutrophils # 12.4 H (1.6-8.9) K/mcL BMP 08/20/18 01:19 Sodium 137 Potassium 2.8 L Chloride 99 Carbon Dioxide 24 BUN 5 L Creatinine 0.63 L Glucose 103 Calcium 8.6 - VTE Documentation of Mechanical Device: Intermittent pneumatic compression device Consult Discharge Plan - Plan Referrals: NONE,PCP [Primary Care Provider] - Jolene Tanner, TEMPLATE MAKER [Advanced Practice Nurse] - (6) Hematemesis Qualifiers: Nausea presence: with nausea Qualified Code(s): K92.0 - Hematemesis (7) Chest pain Qualifiers: Ischemic chest pain type: other angina pectoris type (8) Sepsis Qualifiers: Sepsis type: sepsis due to unspecified organism Qualified Code(s): A41.9 - Sepsis, unspecified organism
[2018-08-20] MEDS: Azithromycin 500 MG in D5% in Water 250 ML IVPB SCH (17:42)
[2018-08-20] MEDS: ALPRAZolam 0.25 MG TABLET PO PRN (18:36)
[2018-08-20] MEDS: Mirtazapine 15 MG TABLET PO SCH (20:56)
[2018-08-21] MEDS: Acetaminophen 325 MG TABLET PO PRN (01:24)
[2018-08-21] MEDS: *HR* HYDROcodone/Acet 5/325 mg TABLET PO PRN ×2 (01:33→09:21)
[2018-08-21 07:36] LABS: Basophils % 0.2 %; Eosinophils # 0.2 K/mcL (0.0-0.6); Eosinophils % 1.9 %; Hematocrit 36.1 % (37.5-50.1); Hemoglobin 12.3 g/dL (12.9-16.9); Immature Granulocytes % 0.6 % (0-4); Lymphocytes # 1.4 K/mcL (0.6-4.6); Lymphocytes % 13.1 %; Mean Corpuscular HGB Conc 34.1 g/dL (31.6-35.5); Mean Corpuscular Hemoglobin 27.4 pg (28.0-33.3); Mean Corpuscular Volume 80.4 fL (83.0-100.0); Mean Platelet Volume 9.9 fL (9.4-12.4); Monocytes # 0.4 K/mcL (0.0-1.3); Monocytes % 3.3 %; Neutrophils # 8.7 K/mcL (1.6-8.9); Platelet Count 475 K/mcL (140-400); Red Blood Count 4.49 M/mcL (4.19-5.50); Red Cell Distribution Width 12.9 % (11.5-14.5); Segmented Neutrophils % 80.9 %; White Blood Count 10.8 K/mcL (4.3-11.1)
[2018-08-21 07:56] LABS: Alanine Aminotransferase 17 Units/L (7-52); Albumin 2.9 g/dL (3.5-5.7); Albumin/Globulin Ratio 0.9 (1.1-2.2); Alkaline Phosphatase 44 Units/L (34-104); Aspartate Amino Transferase 38 Units/L (13-39); BUN/Creatinine Ratio 10 (6-26); Bilirubin,Total 0.5 mg/dL (0.3-1.0); Blood Urea Nitrogen 7 mg/dL (6-20); Calcium 8.4 mg/dL (8.6-10.3); Carbon Dioxide 28 mEq/L (23-29); Chloride 104 mEq/L (98-107); Globulin 3.4 g/dL (2.4-3.5); Glucose 107 mg/dL (70-105); Magnesium 2.1 mg/dL (1.6-2.6); Osmolality,Calculated 288 (280-300); Potassium 3.1 mEq/L (3.5-5.1); Sodium 140 mEq/L (136-145); Total Protein 6.3 g/dL (6.4-8.9); eGFR For African Americans > 60 (> 60); eGFR For Non-African Americans > 60 (> 60)
[2018-08-21] MEDS: cefTRIAXone 1,000 MG in Water for inj. (sterile) 20 ML 10 ML IVP SCH (09:20)
[2018-08-21] MEDS: Pantoprazole 40 MG VIAL IVP SCH (09:20)
[2018-08-21] MEDS: Pregabalin 50 MG CAPSULE PO SCH ×3 (09:21→21:01)
[2018-08-21] MEDS: 0.9 % Sodium Chloride 1,000 ML IVC SCH ×2 (09:28→14:51)
[2018-08-21] MEDS ORDERED: Potassium Chloride 20 MEQ, Lidocaine 1% 2 ML in D5% in Water 250 ML IVPB ONE (10:49)
--- NOTE | 2018-08-21 10:50 | Internal Med Progress Note ---
Hospitalist Progress Note - Encounter Date of Encounter: 08/21/18 Time of Encounter: 10:50 - Subjective Interval History: Patient was seen and examined at bedside currently appears much better than yesterday. States he feels better. I encouraged patient to ambulate in the room currently off oxygen. Discussed treatment plan with the patient verbalized understanding. Nursing did report patient was anxious yesterday advised patient that he would have to ask for pain medication as well as anxiety medicine - Exam Vitals: Temp Pulse Resp BP Pulse Ox 99.2 F 78 16 126/79 91 08/21/18 07:00 08/21/18 07:00 08/21/18 07:00 08/21/18 07:00 08/21/18 09:21 Exam: General: Alert and oriented 3 lying in bed in no acute distress Skin:Normal color, no rash, no lesions. HEENT:EOM, pupils equal, round and reactive. Cardiovascular:Normal S1 & S2, no rubs, murmurs or gallops. No JVD. Pulse regular. Lungs: breath sounds diminished, no wheezes or crackles. Abdomen:Soft, with mild diffuse tenderness; no rebound or guarding Extremities:No deformity, no edema or tenderness, no joint swelling or clubbing. Neurological:Normal cognition and motor skills. Pulses:Carotid and radial pulses normal +2. Rest of the physical exam is non contributory - Assessment and Plan (1) Multifocal pneumonia Current Visit: Yes Status: Acute Assessment and Plan: CTA showing multifocal bilateral infiltrates concerning for pneumonia in the setting of hypoxia and leukocytosis. -Continue O2 support as needed -currently on room air at 91-92%. Patient may require home oxygen and may require a 6 minute walk prior to discharge -Continue with antibiotics: Ceftriaxone/azithromycin -Follow up blood and sputum cultures-negative so far - urine antigens are negative (2) Hypokalemia Current Visit: Yes Status: Acute Assessment and Plan: Potassium 3.1 Likely secondary to GI losses. No evidence of EKG changes. Continue to replete. We will monitor in the morning. We will place on oral supplements no vomiting or diarrhea just nausea We will check GI panel-pending at this time (3) Acute and chronic respiratory failure with hypoxia Current Visit: Yes Status: Acute Assessment and Plan: Acute hypoxic respiratory failure likely secondary to pneumonia. CTA showed no evidence of PE. However there was multifocal bilateral airspace disease with groundglass opacities likely representing pneumonia. Patient currently stable from a respiratory standpoint. -Continue with O2 support-currently on room air 91-92% may require oxygen on discharge 6 walk prior discharge -We will continue antibiotic treatment for underlying pneumonia (4) DVT prophylaxis Current Visit: Yes Status: Acute Assessment and Plan: Subcutaneous heparin (5) Nausea vomiting and diarrhea Current Visit: Yes Status: Acute Assessment and Plan: Patient presenting with 5 day history of nausea, vomiting and diarrhea. CT scan of the abdomen shows no acute changes. Suspect likely secondary to viral gastroenteritis. -We will continue fluid support; anti-emetics. No vomiting or diarrhea today continues to be nauseated (6) Hematemesis Current Visit: Yes Status: Acute Assessment and Plan: Patient reporting one episode of hematemesis earlier today in the setting of recurrent nausea, vomiting and burning epigastric pain. Reports some streaks red blood less than 1 teaspoon. Hemoglobin stable. Possible gastritis versus Celina-Nolasco tear. Low suspicion for significant upper GI bleed at this time. We will start patient on IV PPI. We will guaiac stool. Consider GI consult if further evidence of bleed. 08/19 No bleeding noted hemoglobin stable continue as above 6/8 No more bleeding noted 08/21 No bleeding (7) Chest pain Current Visit: Yes Status: Acute Assessment and Plan: Patient reporting chest tightness that is intermittent, nonradiating exacerbated with stress. No significant risk factors for coronary artery disease. Initial troponin negative. EKG shows normal sinus rhythm without any evidence of ischemic changes. -We will continue patient on telemetry -troponin negative -We will obtain an echocardiogram Impressions: LVEF 65%. Normal LV chamber size, wall thickness and function. Normal left ventricular diastolic function. Normal right ventricular structure and function. No evidence of pulmonary hypertension. No significant valvular dysfunction. -Consider further workup with stress testing once current symptoms and presentation improved (8) Sepsis Current Visit: Yes Status: Acute Assessment and Plan: Patient meets sepsis criteria on presentation Initial lactic acid within normal limits. Patient received 2 L of fluid boluses in the ED. -Continue fluids due to nausea and poor oral intake -Continue with antibiotics -Follow up cultures which are negative to date - Time Spent with Patient Total time spent is greater than 50% in coordination of care (as documented) at patient's floor/unit and/or counseling patient: Internal Medicine: Result - Labs CBC & Chem 7: 08/21/18 06:19 08/21/18 06:19 Labs: Short CBC 08/21/18 Range/Units 06:19 WBC 10.8 (4.3-11.1) K/mcL Hgb 12.3 L (12.9-16.9) g/dL Hct 36.1 L (37.5-50.1) % Plt Count 475 H (140-400) K/mcL Neutrophils # 8.7 (1.6-8.9) K/mcL BMP 08/21/18 06:19 Sodium 140 Potassium 3.1 L Chloride 104 Carbon Dioxide 28 BUN 7 Creatinine 0.67 L Glucose 107 H Calcium 8.4 L Liver Function 08/21/18 Range/Units 06:19 Total Bilirubin 0.5 (0.3-1.0) mg/dL AST 38 (13-39) Units/L ALT 17 (7-52) Units/L Alkaline Phosphatase 44 (34-104) Units/L Albumin 2.9 L (3.5-5.7) g/dL - Impressions Impressions Echocardiogram 08/20/18 19:54 Impressions: LVEF 65%. Normal LV chamber size, wall thickness and function. Normal left ventricular diastolic function. Normal right ventricular structure and function. No evidence of pulmonary hypertension. No significant valvular dysfunction. Left Ventricular Wall Motion: Rest Echo Findings All wall segments showed normal motion. Findings: Study Quality * Technically adequate exam. ECG Findings * Normal sinus rhythm. Left Ventricle * LVEF 65%. * Normal LV chamber size, wall thickness and function. * Normal left ventricular diastolic function. Right Ventricle * Normal right ventricular structure and function. Left Atrium * Normal left atrial size. Right Atrium * Normal right atrial size. Aortic Valve * Trileaflet aortic valve. * Normal aortic valve structure. * No aortic regurgitation. * No aortic stenosis. Mitral Valve * Normal mitral valve structure. * No mitral regurgitation. * No mitral stenosis. Tricuspid Valve * Trace tricuspid regurgitation. * No evidence of pulmonary hypertension. * No tricuspid stenosis. * Normal tricuspid valve structure. Pulmonic Valve * No pulmonic regurgitation. Aorta * Normally sized aortic root. Pericardium * The pericardium appears normal. IVC * The IVC is dilated. Pulmonary Artery * Normal visualized portions of the main pulmonary artery. - VTE Documentation of Mechanical Device: Intermittent pneumatic compression device Consult Discharge Plan - Plan Referrals: NONE,PCP [Primary Care Provider] - Jolene Tanner, [employer] SE[employer]ING MACHINE OPERATOR [Advanced Practice Nurse] - (6) Hematemesis Qualifiers: Nausea presence: with nausea Qualified Code(s): K92.0 - Hematemesis (7) Chest pain Qualifiers: Ischemic chest pain type: other angina pectoris type (8) Sepsis Qualifiers: Sepsis type: sepsis due to unspecified organism Qualified Code(s): A41.9 - Sepsis, unspecified organism
[2018-08-21] MEDS: ALPRAZolam 0.25 MG TABLET PO PRN (13:03)
[2018-08-21] MEDS: Azithromycin 500 MG in D5% in Water 250 ML IVPB SCH (17:49)
[2018-08-21] MEDS: Mirtazapine 15 MG TABLET PO SCH (21:01)
[2018-08-21] MEDS ORDERED: *HR* LORazepam 2 MG/ML VIAL IVP ONE (21:28)
[2018-08-22] MEDS: ALPRAZolam 0.25 MG TABLET PO PRN (03:45)
[2018-08-22] MEDS: 0.9 % Sodium Chloride 1,000 ML IVC SCH (05:02)
[2018-08-22 06:47] LABS: Basophils % 0.2 %; Eosinophils # 0.5 K/mcL (0.0-0.6); Eosinophils % 4.8 %; Hematocrit 35.6 % (37.5-50.1); Hemoglobin 12.2 g/dL (12.9-16.9); Immature Granulocytes % 1.6 % (0-4); Lymphocytes # 1.6 K/mcL (0.6-4.6); Lymphocytes % 15.2 %; Mean Corpuscular HGB Conc 34.3 g/dL (31.6-35.5); Mean Corpuscular Hemoglobin 27.4 pg (28.0-33.3); Mean Corpuscular Volume 79.8 fL (83.0-100.0); Mean Platelet Volume 9.7 fL (9.4-12.4); Monocytes # 0.4 K/mcL (0.0-1.3); Monocytes % 4.1 %; Neutrophils # 7.9 K/mcL (1.6-8.9); Platelet Count 496 K/mcL (140-400); Red Blood Count 4.46 M/mcL (4.19-5.50); Red Cell Distribution Width 13.3 % (11.5-14.5); Segmented Neutrophils % 74.1 %; White Blood Count 10.7 K/mcL (4.3-11.1)
[2018-08-22 07:07] LABS: Alanine Aminotransferase 25 Units/L (7-52); Albumin 2.9 g/dL (3.5-5.7); Albumin/Globulin Ratio 0.9 (1.1-2.2); Alkaline Phosphatase 42 Units/L (34-104); Aspartate Amino Transferase 47 Units/L (13-39); BUN/Creatinine Ratio 12 (6-26); Bilirubin,Total 0.5 mg/dL (0.3-1.0); Blood Urea Nitrogen 8 mg/dL (6-20); Calcium 8.5 mg/dL (8.6-10.3); Carbon Dioxide 27 mEq/L (23-29); Chloride 104 mEq/L (98-107); Globulin 3.3 g/dL (2.4-3.5); Glucose 100 mg/dL (70-105); Osmolality,Calculated 292 (280-300); Potassium 3.3 mEq/L (3.5-5.1); Sodium 142 mEq/L (136-145); Total Protein 6.2 g/dL (6.4-8.9); eGFR For African Americans > 60 (> 60); eGFR For Non-African Americans > 60 (> 60)
[2018-08-22] MEDS ORDERED: 0.9 % Sodium Chloride w KCl 20 MEQ/1,000 ML MLS IVC SCH (07:45)
[2018-08-22] MEDS: Pregabalin 50 MG CAPSULE PO SCH ×3 (10:48→21:08)
[2018-08-22] MEDS: cefTRIAXone 1,000 MG in Water for inj. (sterile) 20 ML 10 ML IVP SCH (10:49)
--- NOTE | 2018-08-22 11:39 | Internal Med Progress Note ---
Hospitalist Progress Note - Encounter Date of Encounter: 08/22/18 Time of Encounter: 10:00 - Subjective Interval History: Patient was seen and examined at bedside currently this a.m. patient was agitated yelling at the nursing staff. Nursing staff reports patient had medication bottles as bedside originally patient would not allow nurses to look at the bottles and that he said it was his Lyrica. Bottles are unmarked. Advised the patient that if he has prescriptions for these medications that they can be reordered for him advised patient if he wants to take his own medication has to be evaluated by pharmacy first. In the meantime patient will have to have prescription bottles secured and pharmacy. Patient verbalized understanding and relinquished prescription bottles. Patient continues to remain agitated and requesting something for anxiety. We will obtain tox screen at pharmacy evaluate pills in the prescription bottles-advised patient is doing well and will most likely discharge in the a.m. - Exam Vitals: Temp Pulse Resp BP Pulse Ox 98.9 F 66 16 114/73 91 08/22/18 07:11 08/22/18 07:11 08/22/18 07:11 08/22/18 07:11 08/22/18 07:11 Exam: General: Alert and oriented 3 lying in bed in no acute distress Skin:Normal color, no rash, no lesions. HEENT:EOM, pupils equal, round and reactive. Cardiovascular:Normal S1 & S2, no rubs, murmurs or gallops. No JVD. Pulse regular. Lungs: breath sounds diminished, no wheezes or crackles. Abdomen:Soft, with mild diffuse tenderness; no rebound or guarding Extremities:No deformity, no edema or tenderness, no joint swelling or clubbing. Neurological:Normal cognition and motor skills. Pulses:Carotid and radial pulses normal +2. Rest of the physical exam is non contributory - Assessment and Plan (1) Multifocal pneumonia Current Visit: Yes Status: Acute Assessment and Plan: CTA showing multifocal bilateral infiltrates concerning for pneumonia in the setting of hypoxia and leukocytosis.-Patient has greatly improving white count is trending down -Continue O2 support as needed -currently on room air at 91-92%. Patient may require home oxygen and may require a 6 minute walk prior to discharge -Continue with antibiotics: Ceftriaxone/azithromycin -Follow up blood and sputum cultures-negative so far - urine antigens are negative (2) Hypokalemia Current Visit: Yes Status: Acute Assessment and Plan: Potassium 3.1 Likely secondary to GI losses. No evidence of EKG changes. C ontinue to replete. We will monitor in the morning. We will place on oral supplements no vomiting or diarrhea just nausea-we will add 20 of KCl to IV bag We will check GI panel-pending at this time (3) Acute and chronic respiratory failure with hypoxia Current Visit: Yes Status: Acute Assessment and Plan: Acute hypoxic respiratory failure likely secondary to pneumonia. CTA showed no evidence of PE. However there was multifocal bilateral airspace disease with groundglass opacities likely representing pneumonia. Patient currently stable from a respiratory standpoint. -Continue with O2 support-currently on room air 91-92% may require oxygen on discharge 6 walk prior discharge -We will continue antibiotic treatment for underlying pneumonia (4) DVT prophylaxis Current Visit: Yes Status: Acute Assessment and Plan: Subcutaneous heparin (5) Nausea vomiting and diarrhea Current Visit: Yes Status: Acute Assessment and Plan: Patient presenting with 5 day history of nausea, vomiting and diarrhea. CT scan of the abdomen shows no acute changes. Suspect likely secondary to viral gastroenteritis. -We will continue fluid support; anti-emetics. No vomiting or diarrhea -patient states his nausea is secondary to his anxiety we will continue with Xanax for anxiety (6) Hematemesis Current Visit: Yes Status: Acute Assessment and Plan: Patient reporting one episode of hematemesis earlier today in the setting of recurrent nausea, vomiting and burning epigastric pain. Reports some streaks red blood less than 1 teaspoon. Hemoglobin stable. Possible gastritis versus Celina-Nolasco tear. Low suspicion for significant upper GI bleed at this time. We will start patient on IV PPI. We will guaiac stool. Consider GI consult if further evidence of bleed. 6/ No bleeding noted hemoglobin stable continue as above 6/8 No more bleeding noted 08/21 No bleeding (7) Chest pain Current Visit: Yes Status: Acute Assessment and Plan: Patient reporting chest tightness that is intermittent, nonradiating exacerbated with stress. No significant risk factors for coronary artery disease. Initial troponin negative. EKG shows normal sinus rhythm without any evidence of ischemic changes. -We will continue patient on telemetry -troponin negative -We will obtain an echocardiogram Impressions: LVEF 65%. Normal LV chamber size, wall thickness and function. Normal left ventricular diastolic function. Normal right ventricular structure and function. No evidence of pulmonary hypertension. No significant valvular dysfunction. -Consider further workup with stress testing once current symptoms and presentation improved-no chest pain at this time (8) Sepsis Current Visit: Yes Status: Acute Assessment and Plan: Patient meets sepsis criteria on presentation Initial lactic acid within normal limits. Patient received 2 L of fluid boluses in the ED. -Continue fluids due to nausea and poor oral intake -Continue with antibiotics -Follow up cultures which are negative to date - Time Spent with Patient Total time spent is greater than 50% in coordination of care (as documented) at patient's floor/unit and/or counseling patient: Internal Medicine: Result - Labs CBC & Chem 7: 08/22/18 05:30 08/22/18 05:30 Labs: Short CBC 08/22/18 Range/Units 05:30 WBC 10.7 (4.3-11.1) K/mcL Hgb 12.2 L (12.9-16.9) g/dL Hct 35.6 L (37.5-50.1) % Plt Count 496 H (140-400) K/mcL Neutrophils # 7.9 (1.6-8.9) K/mcL BMP 08/22/18 05:30 Sodium 142 Potassium 3.3 L Chloride 104 Carbon Dioxide 27 BUN 8 Creatinine 0.69 L Glucose 100 Calcium 8.5 L Liver Function 08/22/18 Range/Units 05:30 Total Bilirubin 0.5 (0.3-1.0) mg/dL AST 47 H (13-39) Units/L ALT 25 (7-52) Units/L Alkaline Phosphatase 42 (34-104) Units/L Albumin 2.9 L (3.5-5.7) g/dL - VTE Documentation of Mechanical Device: Intermittent pneumatic compression device Consult Discharge Plan - Plan Referrals: NONE,PCP [Primary Care Provider] - Jolene Tanner, [employer] PLATING MACHINE OPERATOR [Advanced Practice Nurse] - (6) Hematemesis Qualifiers: Nausea presence: with nausea Qualified Code(s): K92.0 - Hematemesis (7) Chest pain Qualifiers: Ischemic chest pain type: other angina pectoris type (8) Sepsis Qualifiers: Sepsis type: sepsis due to unspecified organism Qualified Code(s): A41.9 - Sepsis, unspecified organism
[2018-08-22] MEDS ORDERED: ALPRAZolam 0.25 MG TABLET PO ONE (11:57)
[2018-08-22] MEDS ORDERED: Azithromycin 250 MG TABLET PO SCH (18:00)
[2018-08-22] MEDS: *HR* HYDROcodone/Acet 5/325 mg TABLET PO PRN (18:20)
[2018-08-22 19:58] LABS: Amphetamine Screen,Urine Negative ng/mL (Cutoff=1000); Barbiturate Screen,Urine Positive ng/mL (Cutoff=200); Benzodiazepines Screen,Urine Positive ng/mL (Cutoff=200); Cannabinoid Screen,Urine Positive ng/mL (Cutoff = 50); Cocaine Screen,Urine Negative ng/mL (Cutoff= 300); Opiate Screen,Urine Positive ng/mL (Cutoff=300); Phencyclidine Screen,Urine Negative ng/mL (Cutoff=25)
[2018-08-22] MEDS: Mirtazapine 15 MG TABLET PO SCH (21:08)
[2018-08-23] MEDS: ALPRAZolam 0.25 MG TABLET PO PRN (03:10)
[2018-08-23 03:59] VITALS: BP 133/75
[2018-08-23 06:25] LABS: Hematocrit 34.1 % (37.5-50.1); Hemoglobin 11.4 g/dL (12.9-16.9); Mean Corpuscular HGB Conc 33.4 g/dL (31.6-35.5); Mean Corpuscular Hemoglobin 27.1 pg (28.0-33.3); Mean Platelet Volume 9.6 fL (9.4-12.4); Platelet Count 484 K/mcL (140-400); Red Blood Count 4.21 M/mcL (4.19-5.50); Red Cell Distribution Width 13.5 % (11.5-14.5); White Blood Count 8.7 K/mcL (4.3-11.1)
[2018-08-23 06:44] LABS: Alanine Aminotransferase 29 Units/L (7-52); Albumin 2.9 g/dL (3.5-5.7); Albumin/Globulin Ratio 0.9 (1.1-2.2); Alkaline Phosphatase 40 Units/L (34-104); Aspartate Amino Transferase 39 Units/L (13-39); BUN/Creatinine Ratio 18 (6-26); Bilirubin,Total 0.4 mg/dL (0.3-1.0); Blood Urea Nitrogen 11 mg/dL (6-20); Calcium 8.6 mg/dL (8.6-10.3); Carbon Dioxide 23 mEq/L (23-29); Chloride 107 mEq/L (98-107); Globulin 3.3 g/dL (2.4-3.5); Glucose 99 mg/dL (70-105); Osmolality,Calculated 287 (280-300); Potassium 3.5 mEq/L (3.5-5.1); Sodium 139 mEq/L (136-145); Total Protein 6.2 g/dL (6.4-8.9); eGFR For African Americans > 60 (> 60); eGFR For Non-African Americans > 60 (> 60)
--- NOTE | 2018-09-06 10:02 | Discharge Summary ---
Date of Encounter: 09/06/18 Time of Encounter: 08:00 - Discharge Diagnosis (1) Multifocal pneumonia Priority: Primary Status: Acute (2) Hypokalemia Priority: Secondary Status: Acute (3) Acute and chronic respiratory failure with hypoxia Priority: Primary Status: Acute (4) Nausea vomiting and diarrhea Priority: Secondary Status: Acute (5) Hematemesis Priority: Secondary Status: Acute Qualifiers: Nausea presence: with nausea Qualified Code(s): K92.0 - Hematemesis (6) Chest pain Priority: Secondary Status: Acute Qualifiers: Chest pain type: unspecified Qualified Code(s): R07.9 - Chest pain, unspecified (7) Sepsis Priority: Secondary Status: Acute Qualifiers: Sepsis type: sepsis due to unspecified organism Qualified Code(s): A41.9 - Sepsis, unspecified organism Hospital course: Notified per nursing staff that patient left AMA prior to my arrival to the floor. I was not able to examine or speak with the patient since he was gone before I left. - Time Spent with Patient Total time spent providing and/or coordinating discharge services: - Discharge Medications Prescriptions: No Action Tizanidine HCl [Zanaflex] 4 mg PO TID PRN PRN Reason: Muscle Spasm Pregabalin [Lyrica] 200 mg PO TID hydroCHLOROthiazide [Hydrochlorothiazide] 25 mg PO DAILY Mirtazapine [Remeron] 30 mg PO HS Ergocalciferol (VITAMIN D2) [Vitamin D2] 50,000 unit PO QWEEK Cyanocobalamin (Vitamin B-12) [Vitamin B12] 1,000 mcg PO DAILY Losartan Potassium 25 mg PO DAILY Quetiapine Fumarate [Seroquel] 50 mg PO HS Home Medications: Cyanocobalamin (Vitamin B-12) [Vitamin B12] 1,000 mcg PO DAILY 08/18/18 [History] Ergocalciferol (VITAMIN D2) [Vitamin D2] 50,000 unit PO QWEEK 08/18/18 [History] Losartan Potassium 25 mg PO DAILY 08/18/18 [History] Mirtazapine [Remeron] 30 mg PO HS 08/18/18 [History] Pregabalin [Lyrica] 200 mg PO TID 08/18/18 [History] Quetiapine Fumarate [Seroquel] 50 mg PO HS 08/18/18 [History] Tizanidine HCl [Zanaflex] 4 mg PO TID PRN 08/18/18 [History] hydroCHLOROthiazide [Hydrochlorothiazide] 25 mg PO DAILY 08/18/18 [History] Allergies/Adverse Reactions: Allergy/AdvReac Type Severity Reaction Status Date / Time No Known Allergies Allergy Verified 08/18/18 20:19 Date of admission: 08/19/18 09:59 Primary care physician: PCP NONE Consults: 08/18/18 04:18 Consult to Nurse Navigator [CONS] Routine Comment: PNEUMONIA - Constitutional Vitals: Temp Pulse Resp BP Pulse Ox 98.4 F 54 14 133/75 96 08/23/18 03:57 08/23/18 03:57 08/23/18 03:57 08/23/18 03:57 08/23/18 03:57 Exam: . - Patient Status Disposition: Left Against Medical Advice Condition: Good - Discharge Instructions Follow Up With: Yazmin Pisano CNP [Advanced Practice Nurse] - 09/01/18 9:30 am Jolene Tanner CNP [Advanced Practice Nurse] - - VTE Documentation of Mechanical Device: Intermittent pneumatic compression device
== END 2018-08-23 07:36 | disposition left against medical advice (07) | DRG 871 ==
LOC: EMEROOARM 22:19 → 3BNU 22:19
PROVIDERS: ADMIT Internal Medicine; ATTEND Internal Medicine